=== PATIENT | female | born 1980 | race Caucasian/White ===

== ENCOUNTER → 2016-04-17 | Outpatient (CLI) | payer BC, OTHER ==
--- NOTE | 2016-04-17 20:41 | REP ---
LEFT KNEE SERIES, COMPLETE: 04/17/2016. Clinical history: Twisting injury to the knee. Pain. Retropatellar. No comparison study. Findings: Five views are provided. Small spurs medial joint line sparing the patellofemoral and lateral joint line. There is no joint space narrowing of any of those three compartments. I see no suprapatellar effusion, loose body, osteochondral defect or fracture. Impression: 1. Minor degenerative changes at the medial joint line, but no joint space narrowing, loose body, joint effusion, osteochondral defect or other acute finding. Signed by Teddy Munoz MD 04/18/2016 08:36 A
== END ==
LOC: M WUC 18:40
PROVIDERS: ATTEND Physician Assistant
DX: M25.562 Pain in left knee (principal)

== ENCOUNTER → 2016-06-25 | Outpatient (REF) | payer BC, OTHER ==
[2016-06-25 14:03] LABS: BASO % 0.7 % (0.0-1.0); EOS # 0.2 K/mm3 (0.0-0.50); EOS % 3.6 % (0.0-3.0); LARGE UNSTAINED CELL # 0.1 K/mm3 (0.0-0.4); LARGE UNSTAINED CELL % 2.1 % (0.0-4.0); LYMPH # 2.3 K/mm3 (1.5-4.5); LYMPH % 36.4 % (24.0-44.0); MEAN CORPUSCULAR HEMOGLOBIN 30.7 pg (27.0-33.0); MEAN CORPUSCULAR HGB CONC 33.5 g/dl (32.0-36.5); MEAN CORPUSCULAR VOLUME 91.8 fl (80.0-96.0); MONO # 0.5 K/mm3 (0.0-0.8); MONO % 8.5 % (0.0-5.0); NEUTROPHILS # 3.1 K/mm3 (1.8-7.7); NEUTROPHILS % 48.7 % (36.0-66.0); PLATELET COUNT, AUTOMATED 239 k/mm3 (150-450); RED CELL DISTRIBUTION WIDTH 12.1 % (11.5-14.5); WHITE BLOOD COUNT 6.2 K/mm3 (4.0-10.0)
[2016-06-25 14:08] LABS: ALBUMIN 4.3 GM/DL (3.2-5.2); ALKALINE PHOSPHATASE 63 U/L (45-117); ALT/SGPT 19 U/L (12-78); ANION GAP 6 MEQ/L (8-16); AST/SGOT 18 U/L (15-37); BILIRUBIN,TOTAL 0.5 MG/DL (0.2-1.0); BLOOD UREA NITROGEN 16 MG/DL (7-18); CALCIUM LEVEL 8.7 MG/DL (8.5-10.1); CARBON DIOXIDE LEVEL 30 MEQ/L (21-32); CHLORIDE LEVEL 105 MEQ/L (98-107); CREATININE FOR GFR 0.76 MG/DL (0.55-1.02); GLOMERULAR FILTRATION RATE > 60.0 (>60); GLUCOSE, FASTING 74 MG/DL (70-105); POTASSIUM SERUM 4.3 MEQ/L (3.5-5.1); SODIUM LEVEL 141 MEQ/L (136-145); TOTAL PROTEIN 7.6 GM/DL (6.4-8.2)
[2016-06-25 14:44] LABS: ERYTHROCYTE SEDIMENTATION RATE 5 mm/hr (0-20)
== END ==
LOC: M LABNEURO 13:01
PROVIDERS: ATTEND Psychiatry & Neurology Neurology
DX: R51 Headache (principal)

== ENCOUNTER 2019-05-21 13:59 | Emergency (ER) | payer BC, OTHER ==
[~2019-05-21] VITALS: Ht 165.1 cm; Wt 69.0 kg
[2019-05-21] MEDS ORDERED: DROS1TAB2 PO (14:10)
[2019-05-21] MEDS ORDERED: NS 1,000 ML IV SCH ×2 (14:15→14:25)
[2019-05-21] MEDS ORDERED: propofoL 200 MG/20 ML VIAL IV PRN (14:30)
[2019-05-21] MEDS ORDERED: ONDANSETRON 4MG/2ML VIAL (J2405) IV ONE ×2 (14:30→17:30)
[2019-05-21] MEDS ORDERED: KETAMINE HCL 200 MG/20 ML VIAL IV ONE (14:30)
[2019-05-21 14:38] LABS: BASO # 0.1 10^3/uL (0.0-0.2); BASO % 0.8 % (0.0-1.0); EOS # 0.2 10^3/uL (0.0-0.5); EOS % 1.9 % (0.0-3.0); HEMATOCRIT 38.4 % (36.0-47.0); HEMOGLOBIN 13.3 g/dl (12.0-15.5); LYMPH # 3.9 10^3/uL (1.5-5.0); LYMPH % 33.4 % (24.0-44.0); MEAN CORPUSCULAR HEMOGLOBIN 31.4 pg (27.0-33.0); MEAN CORPUSCULAR HGB CONC 34.6 g/dl (32.0-36.5); MEAN CORPUSCULAR VOLUME 90.8 fl (80.0-96.0); MONO # 0.9 10^3/uL (0.0-0.8); MONO % 7.8 % (0.0-5.0); NEUTROPHILS # 6.6 10^3/uL (1.5-8.5); NEUTROPHILS % 55.7 % (36.0-66.0); PLATELET COUNT, AUTOMATED 246 10^3/uL (150-450); RED BLOOD COUNT 4.23 10^6/uL (4.00-5.40); WHITE BLOOD COUNT 11.8 10^3/uL (4.0-10.0)
[2019-05-21] MEDS ORDERED: NALOXONE INJ 2 MG/2 ML SYRINGE (J2310) As Ordered ONE (14:47)
[2019-05-21] MEDS ORDERED: METOCLOPRAMIDE INJ 10MG/2ML VIAL (J2765) IV ONE (15:00)
--- NOTE | 2019-05-21 15:10 | REP ---
Right shoulder, single AP view post reduction: There has been satisfactory reduction of the humeral head dislocation. The humeral head is in satisfactory position alignment. The glenoid on this single view. I suspect there is a Hill-Sachs deformity of the superolateral humeral head. Electronically Signed by Reese Luna MD 05/21/2019 03:01 P
--- NOTE | 2019-05-21 15:13 | REP ---
Right shoulder to views AP and lateral projections: There is anterior inferior dislocation of the humeral head. No fracture is identified. Acromioclavicular joint is unremarkable. Mineralization is normal. No calcifications. Impression: Anterior inferior dislocation of the humeral head. Electronically Signed by Reese Luna MD 05/21/2019 03:04 P
[2019-05-21] MEDS ORDERED: KETOROLAC 30 MG/ML VIAL (J1885) IV ONE (17:30)
[2019-05-21 18:42] VITALS: BP 120/76
[2019-05-21] MEDS ORDERED: ONDANSETRON 4 MG ORAL DISINTEGRATING TAB (Q0162 PER 1MG) PO ONE (18:45)
== END 2019-05-21 18:51 | disposition home or self-care (01) ==
LOC: EDBD 13:59 → M ED 13:59
DX: S43.014A Anterior dislocation of right humerus, initial encounter (principal); S43.034A Inferior dislocation of right humerus, initial encounter; S42.201A Unspecified fracture of upper end of right humerus, initial encounter for closed fracture; W00.0XXA Fall on same level due to ice and snow, initial encounter; Y93.23 Activity, snow (alpine) (downhill) skiing, snowboarding, sledding, tobogganing and snow tubing
CPT/HCPCS: 23650; 73020; 73030; 80047; 84702; 85025; 93041; 94760; 96361; 96374; 96375; 96376; 99285; J1885; J2405; J2765; Q0162

== ENCOUNTER → 2019-12-19 | Outpatient (CLI) | payer BC, OTHER ==
[~2019-12-19] MED LIST: DROS1TAB2 PO
--- NOTE | 2019-12-19 09:59 | REPVR ---
PROCEDURE INFORMATION: Exam: MR Lumbar Spine Without Contrast. Exam date and time: 12/19/2019 7:43 AM Age: 39 years old Clinical indication: Low back pain; Additional info: Low back pain, worsening last 3weeks TECHNIQUE: Imaging protocol: Multiplanar magnetic resonance images of the lumbar spine without intravenous contrast. COMPARISON: No relevant prior studies available. FINDINGS: Vertebrae: There is mild anterior wedging of T12, likely old in this patient with no recent history of significant trauma. Spinal cord: Normal signal. No cord compression. L1-L2: No significant disc disease. No significant spinal canal stenosis. No neural foraminal stenosis. L2-L3: No significant disc disease. No significant spinal canal stenosis. No neural foraminal stenosis. L3-L4: There is mild disc bulging. There is a superimposed right foraminal disc herniation. There is moderate right-sided neuroforaminal narrowing. There is compromise of the right lateral recess. L4-L5: There is disc desiccation. There are moderate degenerative end plate changes at this level. There is a moderate disc bulge with a small superimposed central disc herniation. There is mild spinal canal stenosis. There is compromise of the left lateral recess. L5-S1: There is disc desiccation. There is mild disc bulging. There is a small superimposed left foraminal/extraforaminal disc herniation. There is moderate compromise of the left lateral recess. Kidneys and ureters: There are high signal lesions in the left kidney, possibly cysts, but not fully characterized on this MRI exam. Soft tissues: Unremarkable. IMPRESSION: 1. Multilevel degenerative changes causing variable degrees of spinal canal and neuroforaminal narrowing as described above. Right neural foraminal disc herniation at L3/4. Please see details above. 2. There is mild anterior wedging of T12, likely old in this patient with no recent history of significant trauma. Electronically signed by: Israel Zayas On 12/19/2019 09:58:59 AM
== END ==
LOC: M RAD 06:26
PROVIDERS: ATTEND Physician Assistant
DX: M51.26 Other intervertebral disc displacement, lumbar region (principal)